=== PATIENT | female | born 1950 | race Caucasian/White ===

== ENCOUNTER → 2017-12-15 | Outpatient (CLI) | payer MEDICARE, OTHER ==
[~2017-12-15] VITALS: Ht 160 cm; Wt 73.0 kg
[2017-12-15] VITALS (7 sets, daily range): BP systolic 154–181; BP diastolic 76–94
[~2017-12-15] MED LIST: BAC10T PO; BUDE10.22 INH; CAFFEINE CITRATE 60 MG/3 ML injection vial IV ONE; DIAZ5TAB PO; ROSU5TAB4 PO; SPIIN INH; metoprolol tartrate 1mg/ml inj IV PRN; nitroGLYCERIN 0.4mg SUBLingual tab SL PRN; normal saline 500ml IV soln 500 ML IV ONE; regadenoson 0.4mg/5ml syringe IV ONE
== END | disposition home or self-care (01) ==
LOC: RAD 09:40
PROVIDERS: ATTEND Internal Medicine Cardiovascular Disease
DX: J44.9 Chronic obstructive pulmonary disease, unspecified (principal); Z87.891 Personal history of nicotine dependence
CPT/HCPCS: 78452; 93017; A9500; J7030

== ENCOUNTER 2018-01-29 13:43 | Outpatient (CLI) | payer MEDICARE, OTHER ==
[~2018-01-29 13:43] MED LIST changes: -BAC10T PO; +BACL20TA PO; +BIOT50002 PO; -CAFFEINE CITRATE 60 MG/3 ML injection vial IV ONE; +DIAZ10TA4 PO; -DIAZ5TAB PO; +ROSU10TA PO; -ROSU5TAB4 PO; -SPIIN INH; +TIOT18CA3 INH; -metoprolol tartrate 1mg/ml inj IV PRN; -nitroGLYCERIN 0.4mg SUBLingual tab SL PRN; -normal saline 500ml IV soln 500 ML IV ONE; -regadenoson 0.4mg/5ml syringe IV ONE
== END 2018-01-29 23:59 | disposition home or self-care (01) ==
LOC: VAS 13:43
PROVIDERS: ATTEND Surgery
DX: Z13.6 Encounter for screening for cardiovascular disorders (principal)

== ENCOUNTER 2018-05-01 13:55 | Emergency (ER) | payer MEDICARE, OTHER ==
[~2018-05-01] VITALS: Ht 160 cm; Wt 75.0 kg
[2018-05-01 14:53] LABS: BASOPHILS % (AUTO) 0.5 % (0-1); EOSINOPHILS # (AUTO) 0.2 X10'3 (0-0.9); EOSINOPHILS % (AUTO) 2.9 % (0-6); HEMATOCRIT 43.5 % (35.0-45.0); HEMOGLOBIN 14.5 g/dl (12.0-16.0); LYMPHOCYTES # (AUTO) 2.1 X10'3 (1.1-4.8); LYMPHOCYTES % (AUTO) 28.6 % (21-51); MEAN CORPUSCULAR HEMOGLOBIN 28.6 PG (27.0-31.0); MEAN CORPUSCULAR HGB CONC 33.4 g/dL (33.0-36.5); MEAN CORPUSCULAR VOLUME 85.5 FL (78-98); MEAN PLATELET VOLUME 8.6 FL (7.4-10.4); MONOCYTES # (AUTO) 0.4 X10'3 (0-0.9); NEUTROPHILS # (AUTO) 4.6 X10'3 (1.8-7.7); PLATELET COUNT 229 X10'3 (140-440); RED BLOOD COUNT 5.09 X10'6 (4.20-5.60); RED CELL DISTRIBUTION WIDTH 14.4 % (11.5-14.5); WHITE BLOOD COUNT 7.4 X10'3 (4.5-11.0)
[2018-05-01 15:09] LABS: ALANINE AMINOTRANSFERASE 34 U/L (12-78); ALBUMIN 3.9 G/DL (3.4-5.0); ALKALINE PHOSPHATASE 84 IU/L (46-116); ANION GAP 12 (8-16); ASPARTATE AMINO TRANSFERASE 28 U/L (10-37); BILIRUBIN,TOTAL 0.5 MG/DL (0.1-1.0); BLOOD UREA NITROGEN 11 MG/DL (7-18); BUN/CREATININE RATIO 11.1 (6.6-38.0); CALCIUM 9.4 MG/DL (8.5-10.1); CHLORIDE 104 MMOL/L (99-107); CREATININE 0.99 MG/DL (0.40-0.90); GLUCOSE 115 MG/DL (70-104); POTASSIUM 4.4 MMOL/L (3.5-5.1); SODIUM 142 MMOL/L (135-145); TOTAL CARBON DIOXIDE 26.5 MMOL/L (24-32); TOTAL PROTEIN 7.9 G/DL (6.4-8.2); eGFR 56 ML/MIN
[2018-05-01 15:19] LABS: INR 0.9 INR; PROTHROMBIN TIME 9.4 SECONDS (9.0-12.0)
[2018-05-01 15:20] LABS: PARTIAL THROMBOPLASTIN TIME 27 SECONDS (22-32)
--- NOTE | 2018-05-01 15:38 | NUR ---
LLL OF LUNG REMOVED, DUE TO CANCER. PAIN WHERE DRAINAGE SITE WAS.
[2018-05-01] MEDS ORDERED: methylPREDNISolone sod succ 125mg/2ml vial IV ONE (15:45)
[2018-05-01] MEDS ORDERED: ipratropium/albuterol 3ml nebule NEB ONE (15:45)
[2018-05-01] MEDS ORDERED: iohexol 350MG/ML 100ml bottle IV ONE (16:16)
--- NOTE | 2018-05-01 16:51 | NUR ---
RT TX DONE
--- NOTE | 2018-05-01 17:12 | NUR ---
BACK FROM CT SCAN IN STABLE CONDITION
[2018-05-01] MEDS ORDERED: furosemide 10 MG/1 ML 10ml inj IV ONE (17:30)
[2018-05-01] MEDS ORDERED: POTA10TA19 PO (17:34)
[2018-05-01] MEDS ORDERED: FURO-150 PO (17:34)
[2018-05-01 17:48] VITALS: BP 160/102
== END 2018-05-01 17:50 | disposition home or self-care (01) ==
LOC: ER 13:56
DX: J90 Pleural effusion, not elsewhere classified (principal); R07.89 Other chest pain; E78.00 Pure hypercholesterolemia, unspecified; J44.9 Chronic obstructive pulmonary disease, unspecified; G89.29 Other chronic pain; Z90.89 Acquired absence of other organs; Z86.19 Personal history of other infectious and parasitic diseases; Z88.5 Allergy status to narcotic agent; Z79.899 Other long term (current) drug therapy
CPT/HCPCS: 36415; 71046; 71275; 80053; 84484; 85025; 85610; 85730; 93005; 94640; 94760; 96374; 96375; 99284; J1940; J2930; Q9967

== ENCOUNTER 2021-09-22 09:59 | Emergency (ER) | payer MEDICARE, OTHER ==
[~2021-09-22] VITALS: Ht 160 cm; Wt 72.7 kg
[~2021-09-22 09:59] MED LIST changes: +ALBU2.5V10 NEB; +APIX5TAB3 PO; +IPRA4AER IH; +LOP12.5T PO; -ROSU10TA PO; +ROSU10TA2 PO; -TIOT18CA3 INH
[2021-09-22 14:48] VITALS: BP 141/81
== END 2021-09-22 16:05 | disposition home or self-care (01) ==
LOC: ER 10:00
DX: S20.219A Contusion of unspecified front wall of thorax, initial encounter (principal); R10.12 Left upper quadrant pain; E78.00 Pure hypercholesterolemia, unspecified; J44.9 Chronic obstructive pulmonary disease, unspecified; G89.29 Other chronic pain; Z86.19 Personal history of other infectious and parasitic diseases; Z88.5 Allergy status to narcotic agent; Z79.01 Long term (current) use of anticoagulants; Z79.899 Other long term (current) drug therapy; W06.XXXA Fall from bed, initial encounter; Y93.89 Activity, other specified; Y92.89 Other specified places as the place of occurrence of the external cause; Y99.8 Other external cause status
CPT/HCPCS: 71045; 99284